=== PATIENT | female | born 1955 | race Caucasian/White ===

== ENCOUNTER → 2018-11-16 | Outpatient (CLI) | payer SELFPAY ==
--- NOTE | 2018-11-17 09:08 | DIREP ---
PROCEDURE:MRI L SPINE W O CONTRAST TECHNIQUE:Axial T1 and T2; coronal T2; sagittal T1, T2 and inversion recovery sequences were obtained of the lumbar spine. COMPARISON:None. INDICATIONS:M54.16 RADICULOPATHY LUMBROSACRAL REGION, M54.10 RADICULOPATHY FINDINGS: ALIGNMENT:There is grade 1 anterolisthesis of L4 on L5 measuring 5.3 mm sagittal series 401, image 8. The VERTEBRAE:Normal. PARASPINAL AREA:Small cyst in the right kidney. OTHER:No additional findings. LUMBAR DISC LEVELS T12-L1:Normal. L1-L2:Normal. L2-L3:Minimal circumferential disc bulging with no central canal or foraminal stenosis. L3-L4:Minimal circumferential disc bulging with bilateral ligamentum flavum thickening. There is no central canal stenosis. There is mild bilateral foraminal narrowing. L4-L5:The disc is narrowed and desiccated. There is 5.3 mm anterolisthesis of L4 on L5. This is felt to be on a degenerative basis. There is bilateral facet arthrosis and ligamentum flavum thickening all contributing to mild central canal stenosis with effacement of the subarachnoid space. There is mild bilateral foraminal narrowing. L5-S1:Mild facet arthrosis. No central canal or foraminal stenosis. CONCLUSION: 1. Grade 1 anterolisthesis of L4 on L5 which is felt to be on a degenerative basis. There is mild central canal and bilateral foraminal narrowing at this level. 2. Minimal disc bulging at L3-4 with mild foraminal narrowing at this level. Dictated by: Lexx Aguilar M.D. on 11/17/2018 at 08:58 AM
== END | disposition home or self-care (01) ==
LOC: RAD 10:49
PROVIDERS: ATTEND Family Medicine
DX: M48.061 Spinal stenosis, lumbar region without neurogenic claudication (principal); M51.16 Intervertebral disc disorders with radiculopathy, lumbar region; M12.88 Other specific arthropathies, not elsewhere classified, other specified site
CPT/HCPCS: 72148